=== PATIENT | female | born 1995 | race African-American/Black ===

== ENCOUNTER 2024-04-14 18:39 | Emergency (ER) | payer BC ==
[~2024-04-14] VITALS: Ht 167.6 cm; Wt 60.0 kg
[2024-04-14 18:41] VITALS: O2SAT 98
[2024-04-14] MEDS: DEXAMETHASONE 10 MG/ML VIAL IM ONE (19:49)
[2024-04-14 20:46] VITALS: BP 112/70; PULSE 90; RESP 15; TEMP 99.9
[2024-04-14] MEDS ORDERED: MED4 MT (21:03)
== END 2024-04-14 21:00 | disposition home or self-care (01) ==
LOC: ER 18:39
DX: J02.9 Acute pharyngitis, unspecified (principal); R60.9 Edema, unspecified
CPT/HCPCS: 99283; 81025; 87430; 87070; 96372; J1100

== ENCOUNTER 2025-07-28 11:05 | Emergency (ER) | payer BC, MEDICAID ==
[~2025-07-28] VITALS: Ht 160 cm; Wt 52.0 kg
[~2025-07-28 11:05] MED LIST: METH4TAB95 MT
[2025-07-28 11:07] VITALS: O2SAT 98
[2025-07-28] MEDS: SODIUM CHLORIDE 0.9% 1,000 ML IV ONE (11:34)
[2025-07-28 11:35] LABS: HEMATOCRIT. 39.1 % (36.0-48.0); HEMOGLOBIN. 13.0 g/dL (12.0-16.0); MEAN PLATELET VOLUME 8.8 fl (7.4-10.4); PLATELET 241 x1000/uL (130-400); RED BLOOD CELL COUNT 4.29 mill/uL (4.2-5.4); RED CELL DISTRIBUTION WIDTH 15.6 % (11.6-14.6)
[2025-07-28] MEDS: ONDANSETRON HCL 4MG/2ML INJ IV ONE ×2 (11:40→13:35)
[2025-07-28 11:49] LABS: CREATININE 0.7 mg/dL (0.6-1.0); UREA NITROGEN BLOOD < 5 mg/dL (9-23)
[2025-07-28 11:51] LABS: ASPARTATE AMINOTRANSFERASE 18 IU/L (<34); BILIRUBIN DIRECT 0.4 mg/dL (<=3.0)
[2025-07-28 11:52] LABS: BILIRUBIN TOTAL 1.7 mg/dL (0.1-1.0); PROTEIN TOTAL 7.5 g/dL (6.0-8.3)
[2025-07-28 11:53] LABS: INR 1.1
[2025-07-28 12:32] LABS: LYMPHOCYTES % MANUAL 13.0 % (20.0-60.0); MONOCYTES % MANUAL 4.0 % (2.0-8.0); NEUTROPHILS % MANUAL 83.0 % (45.0-75.0)
[2025-07-28 12:33] LABS: PLATELET ESTIMATE NORMAL
[2025-07-28 13:31] LABS: CLARITY URINE CLOUDY (CLEAR); GLUCOSE URINE NEGATIVE (NEGATIVE); KETONES URINE 4+ (NEGATIVE); LEUKOCYTE ESTERASE URINE TRACE (NEGATIVE); NITRITE URINE NEGATIVE (NEGATIVE); OCCULT BLOOD URINE NEGATIVE (NEGATIVE); PH URINE 6.0 (4.5-8.0); PROTEIN URINE 1+ (NEGATIVE); SPECIFIC GRAVITY URINE 1.034 (1.005-1.030); UROBILINOGEN URINE 1.0 E.U./dL (0.2-1.0)
[2025-07-28] MEDS: MAGNESIUM/ALUMINUM HYDROXIDE/SIMETHICONE 30ML UDC PO ONE (13:44)
[2025-07-28] MEDS: KCL 20MEQ/100ML PREMIX 100 ML IV SCH (13:59)
[2025-07-28 14:17] LABS: COLOR URINE DARK YELLOW (YELLOW)
[2025-07-28 14:20] LABS: BACTERIA URINE 2+; MUCUS URINE 2+ /lpf (< = 2+); RBC URINE NONE SEEN /hpf (0-2); SQUAMOUS EPITHELIAL CELL URINE 3+ /lpf (RARE/1+)
[2025-07-28 14:57] VITALS: BP 105/79; PULSE 67; RESP 16; TEMP 37.3; O2SAT 100
[2025-07-30 05:09] LABS: HSV TYPE 2 SPECIFIC AB IGG Reactive (Non Reactive)
[2025-07-31 05:09] LABS: CHLAMYDIA TRACHOMATIS NAA Negative (Negative); NEISSERIA GONORRHOEAE NAA Negative (Negative)
== END 2025-07-28 15:06 | disposition short-term general hospital (02) ==
LOC: ER 11:05
DX: O26.893 Other specified pregnancy related conditions, third trimester (principal); O21.2 Late vomiting of pregnancy; R10.2 Pelvic and perineal pain; Z3A.29 29 weeks gestation of pregnancy; Z79.899 Other long term (current) drug therapy
CPT/HCPCS: 99285; 96365; 76805; 96361; 96366; 96375; 86592; 86695; 86696; 87491; 87591; 80076; 80048; 81003; 83735; 85025; 85610; 85730; 86850; 86900; 86901; 87340; 36415; 96376; J2405; J3480; J7030